=== PATIENT | male | born 1995 | race Caucasian/White ===

== ENCOUNTER 2018-02-07 07:17 | Emergency (ER) | payer MEDICAID ==
[~2018-02-07] VITALS: Ht 172.7 cm; Wt 73.3 kg
[2018-02-07 07:18] VITALS: BP 133/91
[2018-02-07] MEDS ORDERED: LIDOCAINE-MPF 1%, 5ML INFIL ONE (08:30)
== END 2018-02-07 08:47 | disposition home or self-care (01) ==
LOC: ED 08:42
DX: L03.113 Cellulitis of right upper limb (principal); L02.413 Cutaneous abscess of right upper limb; F17.200 Nicotine dependence, unspecified, uncomplicated
CPT/HCPCS: 10060; 99283

== ENCOUNTER 2018-02-15 22:43 | Emergency (ER) | payer MEDICAID ==
[~2018-02-15] VITALS: Ht 172.7 cm; Wt 72.5 kg
[2018-02-15 22:45] VITALS: BP 127/85
== END 2018-02-15 23:13 | disposition home or self-care (01) ==
LOC: ED 23:02
DX: L03.113 Cellulitis of right upper limb (principal); L03.011 Cellulitis of right finger; L03.116 Cellulitis of left lower limb; L02.511 Cutaneous abscess of right hand; L02.416 Cutaneous abscess of left lower limb; J45.909 Unspecified asthma, uncomplicated
CPT/HCPCS: 99283

== ENCOUNTER 2018-03-03 16:45 | Emergency (ER) | payer MEDICAID ==
[~2018-03-03] VITALS: Ht 172.7 cm; Wt 75.0 kg
[2018-03-03 16:47] VITALS: BP 111/76
== END 2018-03-03 17:31 | disposition home or self-care (01) ==
LOC: ED 17:01
DX: L03.113 Cellulitis of right upper limb (principal); L03.116 Cellulitis of left lower limb; J45.909 Unspecified asthma, uncomplicated
CPT/HCPCS: 99283

== ENCOUNTER 2018-03-07 18:05 | Emergency (ER) | payer MEDICAID ==
[~2018-03-07] VITALS: Ht 172.7 cm; Wt 74.4 kg
[2018-03-07 18:08] VITALS: BP 129/84
== END 2018-03-07 19:14 | disposition home or self-care (01) ==
LOC: ED 19:04
DX: L03.114 Cellulitis of left upper limb (principal); L03.113 Cellulitis of right upper limb; L03.116 Cellulitis of left lower limb; L03.115 Cellulitis of right lower limb; L03.319 Cellulitis of trunk, unspecified
CPT/HCPCS: 99283

== ENCOUNTER 2018-03-08 10:14 | Emergency (ER) | payer MEDICAID ==
[~2018-03-08] VITALS: Ht 170.2 cm; Wt 75.7 kg
[2018-03-08 10:17] VITALS: BP 135/97
== END 2018-03-08 11:16 | disposition left against medical advice (07) ==
LOC: ED 11:10
DX: M79.642 Pain in left hand (principal); Z53.21 Procedure and treatment not carried out due to patient leaving prior to being seen by health care provider